=== PATIENT | female | born 1985 | race Caucasian/White ===

== ENCOUNTER 2018-01-07 08:54 | Emergency (ER) | payer OTHER ==
[2018-01-07] MEDS ORDERED: IPRATROPIUM BROM 0.5MG/2.5ML ONE (09:42)
[2018-01-07] MEDS ORDERED: HYDROCODONE/CHLORPHEN 5 ML/OSYR ONE (09:42)
[2018-01-07] MEDS ORDERED: ALBUTEROL 2.5 MG/3 ML NEB SOL ONE (09:42)
[2018-01-07] MEDS ORDERED: IBUPROFEN 400 MG TAB ONE (09:43)
--- NOTE | 2018-01-07 11:02 | ER ---
Nurse's Notes [facility] Name: Breanna Tolbert Age: 32 yrs Sex: Female : 1985 Arrival Date: 01/07/2018 Time: 08:57 Bed 20 Private MD: VEROAN TRIANA Diagnosis: Influenza due to identified novel influenza A virus with other respiratory manifestations Presentation: 01/07 09:05 Presenting complaint: Productive cough with yellow sputum, sinus congestion, and hb headache x 3 days. Chills, body aches, and nausea x 2 days. Transition of care: patient was not received from another setting of care. Onset of symptoms is unknown. Risk Assessment: Do you want to hurt yourself or someone else? Patient reports no desire to harm self or others. Initial Sepsis Screen: Does the patient meet any 2 criteria? No. Patient's initial sepsis screen is negative. Does the patient have a suspected source of infection? No. Patient's initial sepsis screen is negative. Care prior to arrival: None. 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 - Social history:: Smoking status: Patient uses tobacco products, smokes one-half pack cigarettes per day. - Ebola Screening: : No symptoms or risks identified at this time. Screenin:07 Abuse screen: Denies threats or abuse. Denies injuries from another. Nutritional hb screening: No deficits noted. Tuberculosis screening: No symptoms or risk factors identified. Fall Risk None identified. Assessment: 09:10 General: Appears uncomfortable, Behavior is calm, cooperative, Reports chills for 2-3 rb1 days, feeling ill for Denies fever. Pain: Complains of pain in generalized bodyaches Pain currently is 10 out of 10 on a pain scale. Neuro: Level of Consciousness is awake, alert, obeys commands, Oriented to person, place, time, situation. Cardiovascular: Capillary refill < 3 seconds is brisk in bilateral fingers. Respiratory: Reports cough that is productive, yellow-green sputum Airway is patent Respiratory effort is even, unlabored, Respiratory pattern is regular, symmetrical. GI: Reports nausea. : No signs and/or symptoms were reported regarding the genitourinary system. EENT: Reports nasal congestion. Derm: Skin is pink, warm \T\ dry. Musculoskeletal: Range of motion: intact in all extremities. 09:49 Reassessment: Patient appears in no apparent distress at this time. No changes from rb1 previously documented assessment. 10:31 Reassessment: Patient appears in no apparent distress at this time. Patient and/or rb1 family updated on plan of care and expected duration. Pain level reassessed. Patient is alert, oriented x 3, equal unlabored respirations, skin warm/dry/pink. at bedside. Gave the pt. some water. Tolerated well. 11:25 Reassessment: Patient appears in no apparent distress at this time. No changes from em previously documented assessment. Patient is alert, oriented x 3, equal unlabored respirations, skin warm/dry/pink. Vital Signs: 09:06 BP 115 / 70; Pulse 78; Resp 16; Temp 99.4; Pulse Ox 97% on R/A; Pain 7/10; hb 09:10 BP 115 / 70; Pulse 77; Resp 17; Temp 98.7(O); Pulse Ox 97% on R/A; Weight 83.91 kg (R); rb1 Height 5 ft. 7 in. (170.18 cm) (R); Pain 10/10; 10:09 BP 113 / 68; Pulse 71; Resp 16; Pulse Ox 99% on R/A; rb1 11:00 BP 113 / 72; Pulse 72; Resp 16; Pulse Ox 99% on R/A; rb1 09:10 Body Mass Index 28.97 (83.91 kg, 170.18 cm) [facility] ED Course: 08:57 Patient arrived in ED. sb2 08:58 VERONA TRIANA is Private Physician. sb2 09:02 [facility] Carroll [facility]. cp 09:02 Tom Christiansen MD is Attending Physician. cp 09:06 Triage completed. hb 09:06 Arm band placed on right wrist. hb 09:07 Patient has correct armband on for positive identification. Bed in low position. Call light in reach. Side rails up X 1. 09:10 Pulse ox on. NIBP on. rb1 09:11 Radha Catherine, RN is Primary Nurse. rb1 10:35 XRAY Chest Pa And Lat (2 Views) In Process Unspecified. EDMS 11:01 VERONA TRIANA is Referral Physician. cp 11:24 No provider procedures requiring assistance completed. Patient did not have IV access em during this emergency room visit. Administered Medications: 09:45 Drug: Ibuprofen 800 mg Route: PO; rb1 10:20 Follow up: Response: No adverse reaction; Pain is decreased rb1 09:45 Drug: Albuterol 2.5 mg Route: Inhalation; rb1 10:35 Follow up: Response: No adverse reaction; Marked relief of symptoms rb1 09:45 Drug: AtroVENT Aerosol 0.5 mg Route: Inhalation; rb1 10:20 Follow up: Response: No adverse reaction; Marked relief of symptoms rb1 10:08 Drug: Tussionex Pennkinetic ER 5 ml Route: PO; rb1 10:34 Follow up: Response: No adverse reaction; Marked relief of symptoms rb1 Outcome: 11:01 Discharge ordered by MD. cp 11:24 Discharged to home ambulatory, with family. em 11:24 Condition: good 11:24 Discharge instructions given to patient, family, Instructed on discharge instructions, follow up and referral plans. medication usage, Demonstrated understanding of instructions, follow-up care, medications, Prescriptions given X 2. 11:25 Patient left the ED. em Signatures: Dispatcher [employer] [facility] Rob Chery, RUBBER COMPOUNDER FORMULATOR RUBBER COMPOUNDER FORMULATOR em Tom Carroll PA PA cp Radha Catherine, RN RN rb1 Radha Nava RN RN Dominique Crowe sb2
--- NOTE | 2018-01-07 11:02 | EDPHYS ---
Physician Documentation [facility] Name: Breanna Tolbert Age: 32 yrs Sex: Female : 1985 Arrival Date: 01/07/2018 Time: 08:57 Bed 20 Private MD: VERONA TRIANA ED Physician Tom Christiansen HPI: 01/07 09:30 This 32 yrs old Female presents to ER via Ambulatory with complaints of Flu cp Symptoms. 09:30 The patient or guardian reports cough, that is intermittent, flu symptoms, low-grade cp fever, body aches, low back pain. 09:30 Onset: The symptoms/episode began/occurred 3 day(s) ago. cp 09:30 Associated signs and symptoms: Pertinent negatives: diarrhea, fever, vomiting. 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 - Social history:: Smoking status: Patient uses tobacco products, smokes one-half pack cigarettes per day. - Ebola Screening: : No symptoms or risks identified at this time. ROS: 09:35 Constitutional: Positive for body aches, Negative for fever. cp 09:35 Eyes: Negative for injury, pain, redness, and discharge. cp 09:35 ENT: Positive for sore throat. 09:35 Neck: Negative for stiffness. 09:35 Cardiovascular: Negative for chest pain, palpitations. 09:35 Respiratory: Positive for cough, Negative for shortness of breath, wheezing. 09:35 Abdomen/GI: Positive for nausea, Negative for constipation. 09:35 Back: Positive for pain at rest, pain with movement, of the low back area. 09:35 : Negative for urinary symptoms. 09:35 Skin: Negative for cellulitis, rash. 09:35 All other systems are negative. Exam: 09:45 Constitutional: The patient appears in no acute distress, alert, awake, non-toxic, well cp developed, well nourished. 09:45 Head/Face: Normocephalic, atraumatic. cp 09:45 Eyes: Periorbital structures: appear normal, Conjunctiva: normal, no exudate, no injection, Sclera: no appreciated abnormality, Lids and lashes: appear normal, bilaterally. 09:45 ENT: External ear(s): are unremarkable, Ear canal(s): are normal, clear, TM's: bulging, is not appreciated, bilaterally, dullness, bilaterally, erythema, is not appreciated, bilaterally, Nose: is normal, Mouth: is normal, Posterior pharynx: Airway: no evidence of obstruction, patent, Tonsils: no enlargement, no exudate, swelling, is not appreciated, erythema, that is mild, exudate, is not appreciated, Voice: is normal. 09:45 Neck: ROM/movement: is normal, is supple, without pain, no range of motions limitations, no meningismus, no nuchal rigidity, Lymph nodes: no appreciated lymphadenopathy. 09:45 Chest/axilla: Inspection: normal, Palpation: is normal, no crepitus, no tenderness. 09:45 Cardiovascular: Rate: normal, Rhythm: regular. 09:45 Respiratory: the patient does not display signs of respiratory distress, Respirations: normal, no use of accessory muscles, no retractions, no splinting, no tachypnea, labored breathing, is not present, Breath sounds: bronchial sounds, that are mild, are heard diffusely, decreased breath sounds, are not appreciated, stridor, is not appreciated, + upper airway congestion. wheezing: is not appreciated. 09:45 Abdomen/GI: Inspection: abdomen appears normal, Bowel sounds: active, all quadrants, Palpation: abdomen is soft and non-tender, in all quadrants, rebound tenderness, is not appreciated, voluntary guarding, is not appreciated, involuntary guarding, is not appreciated. 09:45 Back: pain, that is mild, of the low back area, CVA tenderness, is absent. 09:45 Skin: cellulitis, is not appreciated, no rash present. 09:45 Neuro: Orientation: to person, place \T\ time. Mentation: is normal, Cerebellar function: is grossly normal, Motor: moves all fours, strength is normal, Sensation: is normal. Vital Signs: 09:06 BP 115 / 70; Pulse 78; Resp 16; Temp 99.4; Pulse Ox 97% on R/A; Pain 7/10; hb 09:10 BP 115 / 70; Pulse 77; Resp 17; Temp 98.7(O); Pulse Ox 97% on R/A; Weight 83.91 kg (R); rb1 Height 5 ft. 7 in. (170.18 cm) (R); Pain 10/10; 10:09 BP 113 / 68; Pulse 71; Resp 16; Pulse Ox 99% on R/A; rb1 11:00 BP 113 / 72; Pulse 72; Resp 16; Pulse Ox 99% on R/A; rb1 09:10 Body Mass Index 28.97 (83.91 kg, 170.18 cm) rb1 MDM: 09:02 Patient medically screened. cp 09:45 Differential diagnosis: bronchitis, flu, pneumonia, strep throat. cp 10:55 Antibiotic administration: Not indicated, the patient does not have an appreciated cp infiltrate, the patient has a suspected viral illness. 10:55 Data reviewed: vital signs, nurses notes, lab test result(s), radiologic studies, plain cp films. Test interpretation: by ED physician or midlevel provider: plain radiologic studies. 10:55 Counseling: I had a detailed discussion with the patient and/or guardian regarding: the cp historical points, exam findings, and any diagnostic results supporting the discharge/admit diagnosis, lab results, radiology results, to return to the emergency department if symptoms worsen or persist or if there are any questions or concerns that arise at home. 01/07 09:24 Order name: Influenza Screen (a \T\ B); Complete Time: 10:21 cp 01/07 10:21 Interpretation: FLUA FLU A ----- \T\nbsp; \T\nbsp; \T\nbsp; \T\nbsp; \T\nbsp; \T\nbsp; \T\nbsp ; cp \T\nbsp; \T\nbsp; POSITIVE for FLU A protein antigen; Reviewed. 01/07 09:24 Order name: Strep; Complete Time: 10:21 cp 01/07 10:35 Interpretation: Reviewed. cp 01/07 09:24 Order name: XRAY Chest Pa And Lat (2 Views) cp 01/07 10:06 Order name: Throat Culture EDVA 01/07 10:23 Order name: Urine Dipstick--Ancillary (enter results) bd 01/07 10:23 Order name: Urine --Ancillary (enter results) bd 01/07 09:24 Order name: Urine Dipstick-Ancillary (obtain specimen); Complete Time: 10:09 cp 12 09:24 Order name: Urine Test (obtain specimen); Complete Time: 10:09 cp Administered Medications: 09:45 Drug: Ibuprofen 800 mg Route: PO; rb1 10:20 Follow up: Response: No adverse reaction; Pain is decreased rb1 09:45 Drug: Albuterol 2.5 mg Route: Inhalation; rb1 10:35 Follow up: Response: No adverse reaction; Marked relief of symptoms rb1 09:45 Drug: AtroVENT Aerosol 0.5 mg Route: Inhalation; rb1 10:20 Follow up: Response: No adverse reaction; Marked relief of symptoms rb1 10:08 Drug: Tussionex Pennkinetic ER 5 ml Route: PO; rb1 10:34 Follow up: Response: No adverse reaction; Marked relief of symptoms rb1 Disposition: 01/08 07:17 Co-signature as Attending Physician, Tom Christiansen MD I agree with the assessment and jovani plan of care. Disposition: 01/07/18 11:01 Discharged to Home. Impression: Influenza due to identified novel influenza A virus with other respiratory manifestations. - Condition is Stable. - Discharge Instructions: Influenza, Adult. - Prescriptions for Ibuprofen 800 mg Oral Tablet - take 1 tablet by ORAL route every 8 hours As needed take with food; 30 tablet. Guaifenesin AC 10- 100 mg/5 mL Oral Liquid - take 10 milliliters by ORAL route every 6 hours As needed; 180 milliliter. - Work release form, Medication Reconciliation Form, Thank You Letter, Antibiotic Education, Prescription Opioid Use form. - Follow up: VERONA TRIANA; When: 2 - 3 days; Reason: Recheck today's complaints. - Problem is new. - Symptoms have improved. Signatures: Dispatcher [employer] Tom Valdez MD MD cha Munoz, Edgar, COURTROOM CLERK COURTROOM CLERK em Tom Carroll PA PA cp Barber, Rebecca, RN RN rb1 Radha Nava RN RN Corrections: (The following items were deleted from the chart) 01/07 11:25 11:01 01/07/2018 11:01 Discharged to Home. Impression: Influenza due to identified em novel influenza A virus with other respiratory manifestations. Condition is Stable. Forms are Medication Reconciliation Form, Thank You Letter, Antibiotic Education, Prescription Opioid Use. Follow up: VERONA TRIANA; When: 2 - 3 days; Reason: Recheck today's complaints. Problem is new. Symptoms have improved. cp
[2018-01-07 11:30] VITALS: BP 115/70; O2SAT 97
--- NOTE | 2018-01-07 11:32 | RAD REPORT ---
EXAM DESCRIPTION: RAD - Chest Pa And Lat (2 Views) - 01/07/2018 10:37 am CLINICAL HISTORY: Cough, congestion, body aches COMPARISON: July 2008 TECHNIQUE: PA and lateral views of the chest were obtained. FINDINGS: The lungs are clear of focal consolidation, mass or failure finding. Interstitial markings are not substantially different from comparison. This interstitial pattern could potentially mask ea rliest stages of interstitial edema or infiltrate. Heart size is normal and central vasculature is within normal limits. No pleural effusion or pneumothorax seen. No acute bony finding noted. No ao rtic abnormality. IMPRESSION: Chronic interstitial pattern not substantially different from comparison. This could mas k early interstitial edema or infiltrate. No focal consolidation.
[2018-01-07 12:15] LABS: Urine Blood NEGATIVE (NEG); Urine Glucose NEGATIVE (NEG); Urine Protein NEGATIVE (NEG)
[2018-01-07 16:23] VITALS: TEMP 98.7
== END 2018-01-07 11:25 | disposition home or self-care (01) ==
LOC: ER 08:54
DX: J10.1 Influenza due to other identified influenza virus with other respiratory manifestations (principal); F17.210 Nicotine dependence, cigarettes, uncomplicated
CPT/HCPCS: 71046; 81003; 81025; 87070; 87081; 87804; 99284

== ENCOUNTER 2018-05-11 11:49 | Emergency (ER) | payer OTHER ==
[2018-05-11] MEDS ORDERED: FENTANYL CITR 100 MCG/2 ML ONE ×2 (12:14→13:21)
[2018-05-11] MEDS ORDERED: NA CHLORIDE 0.9% 1,000 ML ONE (12:16)
[2018-05-11] MEDS ORDERED: ONDANSETRON 4 MG/2 ML VIAL ONE (12:16)
[2018-05-11 12:36] LABS: Potassium 4.1 mmol/L (3.5-5.1)
[2018-05-11 12:43] LABS: Absolute Lymphocytes (CBC) 2.7 K/uL (0.7-4.9); Absolute Monocytes 0.8 K/uL (0.1-1.3); Absolute Neutrophil 3.8 K/uL (1.8-8.0); Eosinophils % 2.5 % (0-4.4); Hematocrit 40.3 % (36.0-45.0); Lymphocytes % 35.5 % (15.3-44.8); MPV 9.8 fL (7.6-11.3); Monocytes % 10.9 % (3.3-12.3); RBC Red Blood Cell Count 4.45 M/uL (3.86-4.86)
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
[2018-05-11 13:58] VITALS: BP 120/77; TEMP 98.2; O2SAT 100
== END 2018-05-11 13:53 | disposition home or self-care (01) ==
LOC: ER 11:49
DX: T21.12XA Burn of first degree of abdominal wall, initial encounter (principal); T24.112A Burn of first degree of left thigh, initial encounter; T24.111A Burn of first degree of right thigh, initial encounter; T31.0 Burns involving less than 10% of body surface; X11.8XXA Contact with other hot tap-water, initial encounter; Y93.G3 Activity, cooking and baking; Y92.009 Unspecified place in unspecified non-institutional (private) residence as the place of occurrence of the external cause
CPT/HCPCS: 36415; 80048; 85025; 96374; 96375; 99283; J2405; J3010; J7030

== ENCOUNTER 2018-09-02 09:23 | Emergency (ER) | payer OTHER ==
--- NOTE | 2018-09-02 10:07 | ER ---
Nurse's Notes [facility] Name: Breanna Tolbert Age: 33 yrs Sex: Female : 1985 Arrival Date: 09/02/2018 Time: 09:25 Bed 19 Private MD: Diagnosis: Urticaria, unspecified Presentation: 09/02 09:31 Presenting complaint: Patient states: Rash on face that patient noticed when she woke ss up this AM. Denies SOB, itching and/or pain. Transition of care: patient was not received from another setting of care. Onset of symptoms was September 02, 2018. Risk Assessment: Do you want to hurt yourself or someone else? Patient reports no desire to harm self or others. Initial Sepsis Screen: Does the patient meet any 2 criteria? No. Patient's initial sepsis screen is negative. Does the patient have a suspected source of infection? No. Patient's initial sepsis screen is negative. Care prior to arrival: None. 09:31 Method Of Arrival: Ambulatory ss 09:31 Acuity: MISHEL 5 ss Historical: - Allergies: 09:34 Aspirin; ss - Home Meds: 09:34 None [Active]; ss - PMHx: 09:34 None; ss - PSHx: 09:34 None; ss - Immunization history:: Adult Immunizations up to date. - Social history:: Smoking status: Patient uses tobacco products, smokes one pack cigarettes per day. - Ebola Screening: : Patient denies exposure to infectious person Patient denies travel to an Ebola-affected area in the 21 days before illness onset. Screenin:36 Abuse screen: Denies threats or abuse. Denies injuries from another. Nutritional ss screening: No deficits noted. Tuberculosis screening: No symptoms or risk factors identified. Never had TB. Fall Risk None identified. Assessment: 09:36 General: Appears in no apparent distress. comfortable, Behavior is calm, cooperative, ss Denies fever, feeling ill, fatigue, chills. Pain: Denies pain. Neuro: Level of Consciousness is awake, alert, obeys commands, Oriented to person, place, time, situation. Cardiovascular: Heart tones S1 S2 present Capillary refill < 3 seconds is brisk in bilateral fingers Patient's skin is warm and dry. Chest pain is denied. Respiratory: Airway is patent Respiratory effort is even, unlabored, Respiratory pattern is regular, symmetrical, Breath sounds are clear bilaterally. GI: Abdomen is non-distended. : No signs and/or symptoms were reported regarding the genitourinary system. EENT: Oral mucosa is moist. Throat is clear. Derm: Skin is pink, warm \T\ dry. normal, Rash noted that is papular, on face. Musculoskeletal: Circulation, motion, and sensation intact. Range of motion: intact in all extremities, Swelling absent. Vital Signs: 09:34 BP 114 / 64; Pulse 67; Resp 16; Temp 98.1(O); Pulse Ox 99% on R/A; Weight 83.46 kg; ss Height 5 ft. 7 in. (170.18 cm); Pain 0/10; 09:34 Body Mass Index 28.82 (83.46 kg, 170.18 cm) ED Course: 09:25 Patient arrived in ED. as 09:28 Tom Carroll PA is PHCP. cp 09:28 Tom Christiansen MD is Attending Physician. cp 09:29 Rob Chery LVN is Primary Nurse. em 09:33 Triage completed. ss 09:34 Arm band placed on right wrist. ss 09:36 Patient has correct armband on for positive identification. Bed in low position. Call ss light in reach. Side rails up X 1. 09:52 Urine collected: clean catch specimen, clear. em 10:14 No provider procedures requiring assistance completed. Patient did not have IV access em during this emergency room visit. Administered Medications: No medications were administered Outcome: 10:06 Discharge ordered by MD. cp 10:14 Discharged to home ambulatory, with family. em 10:14 Condition: good 10:14 Discharge instructions given to patient, family, Instructed on discharge instructions, follow up and referral plans. medication usage, Demonstrated understanding of instructions, follow-up care, medications, Prescriptions given X 2. 10:14 Patient left the ED. em Signatures: Rob Chery LVN LVN em Kell Narvaez Shelby, KARLA RN Tom Carroll PA PA cp
--- NOTE | 2018-09-02 10:07 | EDPHYS ---
Physician Documentation [facility] Name: Breanna Tolbert Age: 33 yrs Sex: Female : 1985 Arrival Date: 09/02/2018 Time: 09:25 Bed 19 Private MD: ED Physician Tom Christiansen HPI: 09/02 09:43 This 33 yrs old Female presents to ER via Ambulatory with complaints of cp Facial Problem. 09:43 The patient's rash thought to be caused by an unknown cause. The rash is located on the cp face. 09:43 The rash can be described as erythematous. Onset: The symptoms/episode began/occurred cp noticed this morning. Associated signs and symptoms: Pertinent negatives: burning sensation, difficulty breathing, fever, itching, swelling of lips, swelling of throat, swelling of tongue, vomiting, wheezing. Severity of symptoms: in the emergency department the symptoms are unchanged. Historical: - Allergies: 09:34 Aspirin; ss - Home Meds: 09:34 None [Active]; ss - PMHx: 09:34 None; ss - PSHx: 09:34 None; ss - Immunization history:: Adult Immunizations up to date. - Social history:: Smoking status: Patient uses tobacco products, smokes one pack cigarettes per day. - Ebola Screening: : Patient denies exposure to infectious person Patient denies travel to an Ebola-affected area in the 21 days before illness onset. ROS: 09:45 Constitutional: Negative for body aches, chills, fever, poor PO intake. cp 09:45 Eyes: Negative for discharge, pain, redness. cp 09:45 ENT: Negative for drainage from ear(s), ear pain, sore throat, difficulty swallowing, difficulty handling secretions. 09:45 Respiratory: Negative for cough, shortness of breath, wheezing. 09:45 Skin: Positive for rash, of the face. 09:45 All other systems are negative. Exam: 09:50 Constitutional: The patient appears in no acute distress, alert, awake, non-toxic, well cp developed, well nourished. 09:50 Head/face: Noted is rash, consistent with urticaria cp 09:50 ENT: Ear canal(s): are normal, clear, TM's: dullness, bilaterally, Nose: is normal, Mouth: Lips: moist, Oral mucosa: pink and intact, moist, Posterior pharynx: is normal, airway is patent, no erythema, no exudate. 09:50 Chest/axilla: Inspection: normal. 09:50 Cardiovascular: Rate: normal. 09:50 Respiratory: the patient does not display signs of respiratory distress, Respirations: normal, no use of accessory muscles, no retractions, no splinting, no tachypnea, Breath sounds: are clear throughout. Vital Signs: 09:34 BP 114 / 64; Pulse 67; Resp 16; Temp 98.1(O); Pulse Ox 99% on R/A; Weight 83.46 kg; ss Height 5 ft. 7 in. (170.18 cm); Pain 0/10; 09:34 Body Mass Index 28.82 (83.46 kg, 170.18 cm) ss MDM: 09:29 Patient medically screened. [facility] 10:06 Data reviewed: vital signs, nurses notes, and as a result, I will discharge patient. 09/02 09:52 Order name: Urine Dipstick--Ancillary (enter results) 09/02 09:52 Order name: Urine --Ancillary (enter results) 09/02 09:50 Order name: Urine Dipstick-Ancillary (obtain specimen); Complete Time: 09:52 em 09/02 09:50 Order name: Urine Test (obtain specimen); Complete Time: 09:52 em Administered Medications: No medications were administered Disposition: 10:20 Chart complete. cp 11:15 Co-signature as Attending Physician, Tom Christiansen MD I agree with the assessment and [facility] plan of care. Disposition: 09/02/18 10:06 Discharged to Home. Impression: Urticaria, unspecified. - Condition is Stable. - Discharge Instructions: Allergies, Adult. - Prescriptions for Pepcid 20 mg Oral Tablet - take 1 tablet by ORAL route every 12 hours for 5 days; 10 tablet. Prednisone 20 mg Oral Tablet - take 2 tablet by ORAL route once daily for 5 days; 10 tablet. - Medication Reconciliation Form, Thank You Letter, Antibiotic Education, Prescription Opioid Use form. - Follow up: Private Physician; When: 2 - 3 days; Reason: Worsening of condition. - Problem is new. - Symptoms are unchanged. Signatures: Dispatcher [employer] Tom Valdez MD MD cha Munoz, Edgar, CONSTRUCTION CARPENTERS HELPER CONSTRUCTION CARPENTERS HELPER em Italia Makc RN RN ss Tom Carroll PA PA cp Corrections: (The following items were deleted from the chart) 10:14 10:06 09/02/2018 10:06 Discharged to Home. Impression: Urticaria, unspecified. em Condition is Stable. Forms are Medication Reconciliation Form, Thank You Letter, Antibiotic Education, Prescription Opioid Use. Follow up: Private Physician; When: 2 - 3 days; Reason: Worsening of condition. Problem is new. Symptoms are unchanged. cp
[2018-09-02 10:21] VITALS: BP 114/64; TEMP 98.1; O2SAT 99
[2018-09-02 10:50] LABS: Urine Blood NEGATIVE (NEG); Urine Glucose NEGATIVE (NEG); Urine Protein NEGATIVE (NEG)
== END 2018-09-02 10:14 | disposition home or self-care (01) ==
LOC: ER 09:23
DX: L50.9 Urticaria, unspecified (principal); F17.210 Nicotine dependence, cigarettes, uncomplicated; Z88.6 Allergy status to analgesic agent
CPT/HCPCS: 81003; 81025; 99283

== ENCOUNTER 2018-09-20 15:58 | Emergency (ER) | payer OTHER ==
--- NOTE | 2018-09-20 16:17 | EDPHYS ---
Physician Documentation [facility] Name: Breanna Tolbert Age: 33 yrs Sex: Female : 1985 Arrival Date: 09/20/2018 Time: 16:01 Bed 9 Private MD: ED Physician Tom Christiansen HPI: 09/20 16:12 This 33 yrs old Female presents to ER via Ambulatory with complaints of Sore jmm Throat. 16:12 The patient presents with sore throat. Onset: The symptoms/episode began/occurred 2 jmm day(s) ago. Modifying factors: The symptoms are alleviated by over the counter medications, the symptoms are aggravated by swallowing, Patient's oral intake status: good. Associated signs and symptoms: Pertinent positives: fever, Pertinent negatives chest pain, chills, cough. This is a 33 year old female with no chronic medical conditions that presents to the ED with complaints of sore throat. Denies cough. States symptoms are similar to previous strep infections. Has taken salt water gargles for relief. . 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 - Social history:: Smoking status: Patient uses tobacco products, smokes one-half pack cigarettes per day. - Ebola Screening: : No symptoms or risks identified at this time. ROS: 16:12 Abdomen/GI: Negative for abdominal pain, nausea, vomiting, diarrhea, and constipation, jmm Back: Negative for injury and pain, Neuro: Negative for headache, weakness, numbness, tingling, and seizure. 16:12 Constitutional: Positive for body aches, chills, fever. 16:12 ENT: Positive for sore throat. 16:12 All other systems are negative. Exam: 16:12 Constitutional: This is a well developed, well nourished patient who is awake, alert, jmm and in no acute distress. Head/Face: atraumatic. Eyes: EOMI, no conjunctival erythema appreciated 16:12 Chest/axilla: Normal chest wall appearance and motion. Cardiovascular: Regular rate and rhythm. No edema appreciated Respiratory: Normal respirations, no respiratory distress appreciated Abdomen/GI: Non distended, soft Back: Normal ROM Skin: General appearance color normal MS/ Extremity: Moves all extremities, no obvious deformities appreciated, no edema noted to the lower extremities Neuro: Awake and alert, normal gait Psych: Behavior is normal, Mood is normal, Patient is cooperative and pleasant 16:12 ENT: Posterior pharynx: Tonsils: bilaterally enlarged, with erythema, with exudate, Uvula: midline, erythema, that is moderate, peritonsillar mass, is not appreciated. Vital Signs: 16:04 BP 119 / 58; Pulse 82; Resp 16; Temp 98.6; Pulse Ox 98% on R/A; Weight 83.46 kg; Height la1 5 ft. 7 in. (170.18 cm); 16:04 Body Mass Index 28.82 (83.46 kg, 170.18 cm) la1 MDM: 16:07 Patient medically screened. [facility] 16:15 Data reviewed: vital signs, nurses notes. Counseling: I had a detailed discussion with katja the patient and/or guardian regarding: the historical points, exam findings, and any diagnostic results supporting the discharge/admit diagnosis, lab results, the need for outpatient follow up, to return to the emergency department if symptoms worsen or persist or if there are any questions or concerns that arise at home. ED course: Patient is alert and non toxic in appearance. 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 Patient is advised to return to the ED if symptoms worsen. patient understood and agrees with the plan of care. . 09/20 16:03 Order name: Strep la1 Administered Medications: No medications were administered Disposition: 09/21 08:27 Co-signature as Attending Physician, Tom Christiansen MD I agree with the assessment and [facility] plan of care. Disposition: 09/20/18 16:16 Discharged to Home. Impression: Acute tonsillitis. - Condition is Stable. - Discharge Instructions: Tonsillitis. - Prescriptions for Amoxicillin 875 mg Oral Tablet - take 1 tablet by ORAL route every 12 hours for 10 days; 20 tablet. - Medication Reconciliation Form, Thank You Letter, Antibiotic Education, Prescription Opioid Use, Work release form form. - Follow up: Private Physician; When: 2 - 3 days; Reason: Recheck today's complaints, Continuance of care, Re-evaluation by your physician. Signatures: Dispatcher [employer] Tom Valdez MD MD cha Mickail, Joel, PA PA jmm Attema, Lee RN RN la1 Corrections: (The following items were deleted from the chart) 09/20 16:22 16:16 09/20/2018 16:16 Discharged to Home. Impression: Acute tonsillitis. Condition is la1 Stable. Forms are Medication Reconciliation Form, Thank You Letter, Antibiotic Education, Prescription Opioid Use. Follow up: Private Physician; When: 2 - 3 days; Reason: Recheck today's complaints, Continuance of care, Re-evaluation by your physician. katja
--- NOTE | 2018-09-20 16:17 | ER ---
Nurse's Notes [facility] Name: Breanna Tolbert Age: 33 yrs Sex: Female : 1985 Arrival Date: 09/20/2018 Time: 16:01 Bed 9 Private MD: Diagnosis: Acute tonsillitis Presentation: 09/20 16:03 Presenting complaint: Patient states: Sore throat since yesterday. Transition of care: la1 patient was not received from another setting of care. Onset of symptoms was September 20, 2018. Risk Assessment: Do you want to hurt yourself or someone else? Patient reports no desire to harm self or others. Initial Sepsis Screen: Does the patient meet any 2 criteria? No. Patient's initial sepsis screen is negative. Does the patient have a suspected source of infection? No. Patient's initial sepsis screen is negative. Care prior to arrival: None. 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 - Social history:: Smoking status: Patient uses tobacco products, smokes one-half pack cigarettes per day. - Ebola Screening: : No symptoms or risks identified at this time. Screenin:06 Abuse screen: Denies threats or abuse. Nutritional screening: No deficits noted. la1 Tuberculosis screening: No symptoms or risk factors identified. Fall Risk None identified. Assessment: 16:05 General: Appears in no apparent distress. Behavior is calm, cooperative. Pain: la1 Complains of pain in left aspect of posterior pharynx and right aspect of posterior pharynx. Neuro: Level of Consciousness is awake, alert, obeys commands, Oriented to person, place, time, situation. Cardiovascular: Capillary refill < 3 seconds Patient's skin is warm and dry. Respiratory: Airway is patent Respiratory effort is even, unlabored, Respiratory pattern is regular, symmetrical, Breath sounds are clear bilaterally. GI: No signs and/or symptoms were reported involving the gastrointestinal system. : No signs and/or symptoms were reported regarding the genitourinary system. EENT: Throat has patchy exudate has enlarged tonsils bilaterally. Vital Signs: 16:04 BP 119 / 58; Pulse 82; Resp 16; Temp 98.6; Pulse Ox 98% on R/A; Weight 83.46 kg; Height la1 5 ft. 7 in. (170.18 cm); 16:04 Body Mass Index 28.82 (83.46 kg, 170.18 cm) la1 ED Course: 16:01 Patient arrived in ED. as 16:01 Nathan Harris PA is PHCP. [facility] 16:01 Tom Christiansen MD is Attending Physician. [facility] 16:03 Triage completed. la1 16:04 Arm band placed on right wrist. la1 16:06 Patient has correct armband on for positive identification. la1 16:08 Samara Loza, RN is Primary Nurse. aa5 16:22 No provider procedures requiring assistance completed. Patient did not have IV access la1 during this emergency room visit. Administered Medications: No medications were administered Outcome: 16:16 Discharge ordered by MD. [facility] 16:22 Discharged to home ambulatory. la1 16:22 Condition: stable 16:22 Discharge instructions given to patient, Instructed on discharge instructions, follow up and referral plans. medication usage, Demonstrated understanding of instructions, follow-up care, medications, Prescriptions given X 1. 16:22 Patient left the ED. la1 Signatures: Nathan Harris PA PA jmm Martinez, Amelia as Calderon, Audri, RN RN 5 Lopez Cruz RN RN la1
[2018-09-20 16:33] VITALS: BP 119/58; TEMP 98.6; O2SAT 98
== END 2018-09-20 16:22 | disposition home or self-care (01) ==
LOC: ER 15:58
DX: J03.90 Acute tonsillitis, unspecified (principal); F17.210 Nicotine dependence, cigarettes, uncomplicated; Z88.6 Allergy status to analgesic agent
CPT/HCPCS: 87070; 87081; 99282

== ENCOUNTER 2018-12-23 20:03 | Emergency (ER) | payer OTHER, SELFPAY ==
--- NOTE | 2018-12-23 20:44 | EDPHYS ---
Physician Documentation [facility] Name: Breanna Tolbert Age: 33 yrs Sex: Female : 1985 Arrival Date: 12/23/2018 Time: 20:05 Bed 26 Private MD: ED Physician Donato Kwong HPI: 12/23 20:58 This 33 yrs old Female presents to ER via Ambulatory with complaints of snw Congestion. 20:58 Onset: The symptoms/episode began/occurred 3 week(s) ago, and became worse and became snw persistent. Associated signs and symptoms: Pertinent positives: congestion, earache, nasal discharge, sore throat, decreased hearing. Modifying factors: The patient symptoms are alleviated by nothing. It is unknown whether or not the patient has had similar symptoms in the past. The patient has not recently seen a physician. + smoker. 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 - Social history:: Smoking status: Patient uses tobacco products, smokes one pack cigarettes per day. - Ebola Screening: : Patient denies travel to an Ebola-affected area in the 21 days before illness onset. ROS: 20:57 Eyes: Negative for injury, pain, redness, and discharge. snw 20:57 Neck: Negative for injury, pain, and swelling. 20:57 Abdomen/GI: Negative for abdominal pain, nausea, vomiting, diarrhea, and constipation, Back: Negative for injury and pain, : Negative for injury, bleeding, discharge, and swelling, MS/Extremity: Negative for injury and deformity, Skin: Negative for injury, rash, and discoloration, Neuro: Negative for headache, weakness, numbness, tingling, and seizure. 20:57 Constitutional: Positive for body aches, fatigue, malaise. 20:57 ENT: Positive for ear pain, nasal discharge, rhinorrhea, sinus congestion, sore throat. 20:57 Respiratory: Positive for cough. Exam: 20:56 Eyes: Pupils equal round and reactive to light, extra-ocular motions intact. Lids and snw lashes normal. Conjunctiva and sclera are non-icteric and not injected. Cornea within normal limits. Periorbital areas with no swelling, redness, or edema. 20:56 Neck: Trachea midline, no thyromegaly or masses palpated, and no cervical lymphadenopathy. Supple, full range of motion without nuchal rigidity, or vertebral point tenderness. No Meningismus. Chest/axilla: Normal chest wall appearance and motion. Nontender with no deformity. No lesions are appreciated. Cardiovascular: Regular rate and rhythm with a normal S1 and S2. No gallops, murmurs, or rubs. Normal PMI, no JVD. No pulse deficits. 20:56 Abdomen/GI: Soft, non-tender, with normal bowel sounds. No distension or tympany. No guarding or rebound. No evidence of tenderness throughout. Back: No spinal tenderness. No costovertebral tenderness. Full range of motion. Skin: Warm, dry with normal turgor. Normal color with no rashes, no lesions, and no evidence of cellulitis. MS/ Extremity: Pulses equal, no cyanosis. Neurovascular intact. Full, normal range of motion. Neuro: Awake and alert, GCS 15, oriented to person, place, time, and situation. Cranial nerves II-XII grossly intact. Motor strength 5/5 in all extremities. Sensory grossly intact. Cerebellar exam normal. Normal gait. Psych: Awake, alert, with orientation to person, place and time. Behavior, mood, and affect are within normal limits. 20:56 Constitutional: The patient appears uncomfortable. 20:56 Head/face: Noted is swelling, tenderness, Sinus tenderness, that is moderate. 20:56 ENT: TM's: erythema, that is moderate, bilaterally, fluid levels, Nose: Nasal mucosa: edematous, Mouth: is normal, Posterior pharynx: erythema, that is moderate, Voice: is normal. 20:56 Respiratory: the patient does not display signs of respiratory distress, Respirations: shallow respirations, Breath sounds: + upper airway congestion. Vital Signs: 20:16 BP 117 / 71; Pulse 66; Resp 16; Temp 97.7; Pulse Ox 100% on R/A; Weight 72.12 kg; aj1 Height 5 ft. 7 in. (170.18 cm); 20:16 Body Mass Index 24.90 (72.12 kg, 170.18 cm) aj1 MDM: 20:18 Patient medically screened. snw 20:48 Data reviewed: vital signs, nurses notes. Data interpreted: Pulse oximetry: on room air snw is 100 %. Interpretation: normal. Counseling: I had a detailed discussion with the patient and/or guardian regarding: the historical points, exam findings, and any diagnostic results supporting the discharge/admit diagnosis, the need for outpatient follow up, for definitive care, to return to the emergency department if symptoms worsen or persist or if there are any questions or concerns that arise at home, smoking cessation. Special discussion: Based on the history and exam findings, there is no indication for further emergent testing or inpatient evaluation. I discussed with the patient/guardian the need to see the primary care provider for further evaluation of the symptoms. Administered Medications: 20:57 Drug: Decadron 8 mg Route: PO; tr5 20:57 Drug: Albuterol 2.5 mg Route: Inhalation; tr5 20:58 Drug: Rocephin (cefTRIAXone) 1 grams Route: IM; Site: left ventrogluteal; tr5 Disposition: 12/24 00:40 Co-signature as Attending Physician, Donato Kwong MD. rn Disposition: 12/23/18 20:43 Discharged to Home. Impression: Acute bronchitis, Acute sinusitis, Acute suppurative otitis media. - Condition is Stable. - Discharge Instructions: Acute Bronchitis, Adult, Otitis Media, Adult, Sinusitis, Adult, Steps to Quit Smoking, Cough, Adult, Rehydration, Adult, Heat Therapy. - Prescriptions for Augmentin 875- 125 mg Oral Tablet - take 1 tablet by ORAL route every 12 hours for 10 days; 20 tablet. Tessalon Perles 100 mg Oral Capsule - take 1 capsule by ORAL route every 8 hours As needed; 15 capsule. Prednisone 20 mg Oral Tablet - take 2 tablet by ORAL route once daily for 5 days; 10 tablet. Albuterol Sulfate 90 mcg/actuation - inhale 1-2 puff by INHALATION route every 4-6 hours; 1 Inhaler. - Work release form, Medication Reconciliation Form, Thank You Letter, Antibiotic Education, Prescription Opioid Use form. - Follow up: Emergency Department; When: As needed; Reason: Worsening of condition. Follow up: Private Physician; When: 2 - 3 days; Reason: Recheck today's complaints, Continuance of care, Re-evaluation by your physician. Signatures: Yoly Mccartney RN RN aj1 Zoraida Myers, WOOD BORING MACHINE OPERATOR-C WOOD BORING MACHINE OPERATOR-Csnw Donato Kwong MD MD rn Rodriguez, Tommie, RN RN tr5 Corrections: (The following items were deleted from the chart) 12/23 21:31 20:43 12/23/2018 20:43 Discharged to Home. Impression: Acute bronchitis; Acute tr5 sinusitis; Acute suppurative otitis media. Condition is Stable. Forms are Medication Reconciliation Form, Thank You Letter, Antibiotic Education, Prescription Opioid Use. Follow up: Emergency Department; When: As needed; Reason: Worsening of condition. Follow up: Private Physician; When: 2 - 3 days; Reason: Recheck today's complaints, Continuance of care, Re-evaluation by your physician. snw
--- NOTE | 2018-12-23 20:44 | ER ---
Nurse's Notes [facility] Name: Breanna Tolbert Age: 33 yrs Sex: Female : 1985 Arrival Date: 12/23/2018 Time: 20:05 Bed 26 Private MD: Diagnosis: Acute bronchitis;Acute sinusitis;Acute suppurative otitis media Presentation: 12/23 20:14 Presenting complaint: Patient states: "I've been sick for 3 weeks and its gotten to the aj1 point where I can't hear" Patient reports difficulty hearing, sore throat, and nasal congestion for the past 3 weeks. Patient has not seen her PHCP regarding this complaint. Transition of care: patient was not received from another setting of care. Onset of symptoms was 2018. Risk Assessment: Do you want to hurt yourself or someone else? Patient reports no desire to harm self or others. Initial Sepsis Screen: Does the patient meet any 2 criteria? No. Patient's initial sepsis screen is negative. Does the patient have a suspected source of infection? No. Patient's initial sepsis screen is negative. Care prior to arrival: None. 20:14 Method Of Arrival: Ambulatory aj 20:14 Acuity: MISHEL 4 aj1 Triage Assessment: 20:16 General: Appears in no apparent distress. comfortable, Behavior is calm, cooperative, aj1 appropriate for age. Pain: Pain currently is 3 out of 10 on a pain scale. Neuro: Level of Consciousness is awake, alert, obeys commands. Cardiovascular: Patient's skin is warm and dry. Respiratory: Airway is patent Respiratory effort is even, unlabored, Respiratory pattern is regular, symmetrical. 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 - Social history:: Smoking status: Patient uses tobacco products, smokes one pack cigarettes per day. - Ebola Screening: : Patient denies travel to an Ebola-affected area in the 21 days before illness onset. Screenin:30 Abuse screen: Denies threats or abuse. Nutritional screening: No deficits noted. tr5 Tuberculosis screening: No symptoms or risk factors identified. Fall Risk None identified. Assessment: 20:30 General: Appears uncomfortable, Behavior is calm, cooperative, appropriate for age. tr5 Pain: Denies pain. 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 Cardiovascular: Heart tones present Capillary refill < 3 seconds. Respiratory: Breath sounds are clear. GI: No signs and/or symptoms were reported involving the gastrointestinal system. : No signs and/or symptoms were reported regarding the genitourinary system. EENT: Reports nasal congestion pain in left ear and mouth Hearing loss. Derm: No signs and/or symptoms reported regarding the dermatologic system. Musculoskeletal: No signs and/or symptoms reported regarding the musculoskeletal system. Vital Signs: 20:16 BP 117 / 71; Pulse 66; Resp 16; Temp 97.7; Pulse Ox 100% on R/A; Weight 72.12 kg; aj1 Height 5 ft. 7 in. (170.18 cm); 20:16 Body Mass Index 24.90 (72.12 kg, 170.18 cm) aj1 ED Course: 20:05 Patient arrived in ED. ds1 20:15 Triage completed. aj1 20:16 Arm band placed on Patient placed in an exam room. aj1 20:18 Zoraida Myers FNP-C is PHCP. snw 20:18 Donato Kwong MD is Attending Physician. snw 20:30 Placed in gown. Bed in low position. Call light in reach. tr5 20:45 Elia Garcia, RN is Primary Nurse. tr5 21:10 No provider procedures requiring assistance completed. Patient did not have IV access tr5 during this emergency room visit. Administered Medications: 20:57 Drug: Decadron 8 mg Route: PO; tr5 20:57 Drug: Albuterol 2.5 mg Route: Inhalation; tr5 20:58 Drug: Rocephin (cefTRIAXone) 1 grams Route: IM; Site: left ventrogluteal; tr5 Outcome: 20:43 Discharge ordered by . snw 21:10 Discharged to home ambulatory. tr5 21:10 Condition: stable 21:10 Discharge instructions given to patient, Instructed on discharge instructions, follow up and referral plans. medication usage, Demonstrated understanding of instructions, follow-up care, medications, Prescriptions given X 2. 21:31 Patient left the ED. tr5 Signatures: Yoly Mccartney RN RN aj1 Zoraida Myers, AUTO WHEEL ALIGNMENT SPECIALIST-C AUTO WHEEL ALIGNMENT SPECIALIST-Shelia Siddiqi ds1 Elia Garcia RN RN tr5
[2018-12-23] MEDS ORDERED: ALBUTEROL 2.5 MG/3 ML NEB SOL ONE (20:49)
[2018-12-23] MEDS ORDERED: CEFTRIAXONE/SWI 1gm 1 GM/10 ML SYR ONE (20:50)
[2018-12-23] MEDS ORDERED: dexAMETHasone 4 MG TAB ONE (20:50)
[2018-12-23 22:30] VITALS: BP 117/71; TEMP 97.7; O2SAT 100
== END 2018-12-23 21:31 | disposition home or self-care (01) ==
LOC: ER 20:03
DX: J20.9 Acute bronchitis, unspecified (principal); J01.90 Acute sinusitis, unspecified; H66.003 Acute suppurative otitis media without spontaneous rupture of ear drum, bilateral; F17.210 Nicotine dependence, cigarettes, uncomplicated
CPT/HCPCS: 96372; 99284; J0696; J8540

== ENCOUNTER 2019-03-19 11:09 | Emergency (ER) | payer SELFPAY ==
--- NOTE | 2019-03-19 14:34 | ER ---
Nurse's Notes [facility] Name: Breanna Tolbert Age: 33 yrs Sex: Female : 1985 Arrival Date: 03/19/2019 Time: 11:11 Bed 23 Private MD: VERONA TRIANA Diagnosis: Pain in right upper arm;Fall;right knee contusion Presentation: 03/19 11:29 Presenting complaint: Patient states: Fell on Monday from pushing some cups at work, jl7 fell on right side; c/o right arm, right leg, back and neck pain. Took 800 mg ibuprofen this morning and it's not helping. Transition of care: patient was not received from another setting of care. Onset of symptoms was March 17, 2019. Risk Assessment: Do you want to hurt yourself or someone else? Patient reports no desire to harm self or others. Initial Sepsis Screen: Does the patient meet any 2 criteria? No. Patient's initial sepsis screen is negative. Does the patient have a suspected source of infection? No. Patient's initial sepsis screen is negative. Care prior to arrival: Medication(s) given: Motrin, 800 mg. 11:29 Method Of Arrival: Ambulatory jl7 11:29 Acuity: MISHEL 4 jl7 Triage Assessment: 11:31 General: Appears in no apparent distress. uncomfortable, Behavior is calm, cooperative, jl7 appropriate for age. Pain: Complains of pain in back, right arm and right leg, neck. 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 - Coronavirus screen:: The patient has NOT traveled to [place], [place], or [place] in the past 14 days. Proceed with normal triage process as indicated. - Social history:: Smoking status: Patient reports the use of cigarette tobacco products, smokes one-half pack cigarettes per day. - Ebola Screening: : No symptoms or risks identified at this time. Screenin:46 Abuse screen: Denies threats or abuse. Denies injuries from another. Nutritional mg2 screening: No deficits noted. Tuberculosis screening: No symptoms or risk factors identified. Fall Risk Assessment: 12:30 General: Appears in no apparent distress. comfortable, Behavior is calm, cooperative. mg2 12:30 Pain: Complains of pain in right side. Neuro: Level of Consciousness is awake, alert, mg2 obeys commands, Oriented to person, place, time, situation. EENT: No signs and/or symptoms were reported regarding the EENT system. Cardiovascular: Capillary refill < 3 seconds Patient's skin is warm and dry. Respiratory: Airway is patent Respiratory effort is even, unlabored, Respiratory pattern is regular, symmetrical. GI: No signs and/or symptoms were reported involving the gastrointestinal system. : No signs and/or symptoms were reported regarding the genitourinary system. Derm: Skin is intact, is healthy with good turgor, Skin is pink, warm \T\ dry. normal. Musculoskeletal: Circulation, motion, and sensation intact. Capillary refill < 3 seconds. Vital Signs: 11:31 BP 111 / 62; Pulse 77; Resp 17; Temp 98.5; Pulse Ox 99% ; Weight 81.65 kg; Height 5 ft. jl7 7 in. (170.18 cm); Pain 7/10; 13:30 BP 118 / 68; Pulse 67; Resp 18; Pulse Ox 100% on R/A; mg2 14:46 BP 113 / 69; Pulse 70; Resp 18; Temp 98; Pulse Ox 100% on R/A; mg2 11:31 Body Mass Index 28.19 (81.65 kg, 170.18 cm) jl7 ED Course: 11:11 Patient arrived in ED. mr 11:12 VERONA TRIANA is Private Physician. mr 11:29 Chandler Urbina MD is Attending Physician. ps1 11:31 Triage completed. jl7 11:31 Arm band placed on right wrist. jl7 11:33 Patient placed in waiting room, in view of staff members, Patient notified of wait time.jl7 12:03 Italia Mack RN is Primary Nurse. ss 12:03 Primary Nurse role handed off by Italia Mack RN mg2 12:03 Alber Hannah, KARLA is Primary Nurse. mg2 12:03 Alber Hannah RN is Primary Nurse. mg2 13:46 Patient has correct armband on for positive identification. mg2 13:46 No provider procedures requiring assistance completed. Patient did not have IV access mg2 during this emergency room visit. 14:31 VERONA TRIANA is Referral Physician. ps1 Administered Medications: No medications were administered Outcome: 14:32 Discharge ordered by MD. ps1 14:47 Discharged to home ambulatory. mg2 14:47 Condition: stable 14:47 Discharge instructions given to patient, Instructed on discharge instructions, follow up and referral plans. medication usage, Demonstrated understanding of instructions, follow-up care, medications, Prescriptions given X 3. 14:47 Patient left the ED. mg2 Signatures: Marcy Montesinos mr Italia Mack, RN RN ss David Fields RN RN jl7 Chandler Urbina MD MD ps1 Alber Hannah RN RN mg2
--- NOTE | 2019-03-19 14:34 | EDPHYS ---
Physician Documentation [facility] Name: Breanna Tolbert Age: 33 yrs Sex: Female : 1985 Arrival Date: 03/19/2019 Time: 11:11 Bed 23 Private MD: VERONA TRIANA ED Physician Chandler Urbina MILL RECORDER: 03/19 11:31 LMP 03/12/2019 jl7 Historical: - Allergies: 11:31 No Known Allergies; jl7 - Home Meds: 11:31 None [Active]; jl7 - PMHx: 11:31 None; jl7 - PSHx: 11:31 None; jl7 - Immunization history:: Adult Immunizations not up to date. - Coronavirus screen:: The patient has NOT traveled to [place], [place], or [place] in the past 14 days. Proceed with normal triage process as indicated. - Social history:: Smoking status: Patient reports the use of cigarette tobacco products, smokes one-half pack cigarettes per day. - Ebola Screening: : No symptoms or risks identified at this time. Vital Signs: 11:31 BP 111 / 62; Pulse 77; Resp 17; Temp 98.5; Pulse Ox 99% ; Weight 81.65 kg; Height 5 ft. jl7 7 in. (170.18 cm); Pain 7/10; 13:30 BP 118 / 68; Pulse 67; Resp 18; Pulse Ox 100% on R/A; mg2 14:46 BP 113 / 69; Pulse 70; Resp 18; Temp 98; Pulse Ox 100% on R/A; mg2 11:31 Body Mass Index 28.19 (81.65 kg, 170.18 cm) jl7 MDM: 12:27 Patient medically screened. ps1 03/19 13:22 Order name: Humerus Right XRAY ps1 03/19 14:42 Order name: RAD EDMS Administered Medications: No medications were administered Disposition: 03/19/19 14:32 Discharged to Home. Impression: Pain in right upper arm, Fall, right knee contusion. - Condition is Stable. - Discharge Instructions: Musculoskeletal Pain. - Prescriptions for Anaprox DS 550 mg Oral Tablet - take 1 tablet by ORAL route every 12 hours As needed; 20 tablet. Robaxin 500 mg Oral Tablet - take 2 tablet by ORAL route every 6 hours As needed; 40 tablet. Medrol (Kvng) 4 mg Oral Tablets, Dose Pack - take 1 tablet by ORAL route as directed - follow package instructions; 1 packet. - Medication Reconciliation Form, Thank You Letter, Antibiotic Education, Prescription Opioid Use form. - Follow up: VERONA TRIANA; When: As needed; Reason: Recheck today's complaints, Continuance of care, Re-evaluation by your physician. Follow up: Emergency Department; When: As needed; Reason: Fever > 102 F, Trouble breathing, Worsening of condition. - Problem is new. - Symptoms have improved. Signatures: Dispatcher [employer] EDMS David Fields RN RN jl7 Chandler Urbina MD MD ps1 Alber Hannah RN RN mg2 Corrections: (The following items were deleted from the chart) 14:47 14:32 03/19/2019 14:32 Discharged to Home. Impression: Pain in right upper arm; Fall; mg2 right knee contusion. Condition is Stable. Forms are Medication Reconciliation Form, Thank You Letter, Antibiotic Education, Prescription Opioid Use. Follow up: VERONA TRIANA; When: As needed; Reason: Recheck today's complaints, Continuance of care, Re-evaluation by your physician. Follow up: Emergency Department; When: As needed; Reason: Fever > 102 F, Trouble breathing, Worsening of condition. Problem is new. Symptoms have improved. ps1
--- NOTE | 2019-03-19 14:37 | RAD REPORT ---
EXAM DESCRIPTION: RAD - Humerus Right - 03/19/2019 2:22 pm CLINICAL HISTORY: fall / pain COMPARISON: <Comparisons> FINDINGS: No fracture or dislocation seen.
[2019-03-21 06:47] VITALS: BP 113/69; TEMP 98; O2SAT 100
== END 2019-03-19 14:47 | disposition home or self-care (01) ==
LOC: ER 11:09
DX: S80.01XA Contusion of right knee, initial encounter (principal); M79.621 Pain in right upper arm; W18.30XA Fall on same level, unspecified, initial encounter; Y93.89 Activity, other specified; Y92.9 Unspecified place or not applicable; Y99.0 Civilian activity done for income or pay; F17.210 Nicotine dependence, cigarettes, uncomplicated
CPT/HCPCS: 99282

== ENCOUNTER 2019-04-14 00:36 | Emergency (ER) | payer SELFPAY ==
--- NOTE | 2019-04-14 03:03 | ER ---
Nurse's Notes [facility] Name: Breanna Tolbert Age: 33 yrs Sex: Female : 1985 Arrival Date: 04/14/2019 Time: 01: Bed 15 Private MD: Diagnosis: Acute upper respiratory infection, unspecified;Otitis media, unspecified, bilateral Presentation: 04/13 01:02 Chief complaint: Patient states: Itchy throat yesterday. Now has sore throat. + body ll1 aches. Coronavirus screen: The patient has NOT traveled to a country currently being monitored by the [facility] within the last 14 days. Proceed with normal triage procedures. Ebola Screen: Patient denies travel to an Ebola-affected area in the 21 days before illness onset. Initial Sepsis Screen: Does the patient meet any 2 criteria? No. Patient's initial sepsis screen is negative. Does the patient have a suspected source of infection? No. Patient's initial sepsis screen is negative. Risk Assessment: Do you want to hurt yourself or someone else? Patient reports no desire to harm self or others. 01:02 Method Of Arrival: Ambulatory ll1 01:02 Acuity: MISHEL 4 ll1 01:30 Onset of symptoms was April 13, 2019. wh Historical: - Allergies: 01:04 No Known Allergies; ll1 - PMHx: 01:04 None; ll1 - PSHx: 01:04 None; ll1 - Immunization history:: Flu vaccine is not up to date. - Social history:: Smoking status: Patient reports the use of cigarette tobacco products, smokes one-half pack cigarettes per day, Patient/guardian denies using alcohol, street drugs. Screenin:30 Abuse screen: Denies threats or abuse. Denies injuries from another. Nutritional wh screening: No deficits noted. Tuberculosis screening: No symptoms or risk factors identified. Fall Risk None identified. Assessment: 01:15 General: Appears in no apparent distress. Behavior is calm, cooperative, appropriate wh for age. Pain: Complains of pain in sore throat. Neuro: Level of Consciousness is awake, alert, obeys commands, Oriented to person, place, time, situation, Appropriate for age. Cardiovascular: Heart tones S1 S2. Respiratory: Airway is patent Respiratory effort is even, unlabored, Respiratory pattern is regular, symmetrical, Breath sounds are clear bilaterally. GI: Abdomen is flat, non-distended. : No signs and/or symptoms were reported regarding the genitourinary system. EENT: Throat is pink. Derm: Skin is intact, is healthy with good turgor, Skin is pink, warm \T\ dry. normal. Musculoskeletal: Circulation, motion, and sensation intact. 01:30 Reassessment: Patient appears in no apparent distress at this time. No changes from previously documented assessment. Patient and/or family updated on plan of care and expected duration. Pain level reassessed. Patient is alert, oriented x 3, equal unlabored respirations, skin warm/dry/pink. Vital Signs: 01:02 BP 127 / 63; Pulse 88; Resp 17; Temp 98.0; Pulse Ox 100% ; Weight 83.91 kg; Height 5 ll1 ft. 7 in. (170.18 cm); Pain 5/10; 01:30 Pulse 79; Resp 18; Temp 97.4; Pulse Ox 99% on R/A; wh 01:02 Body Mass Index 28.97 (83.91 kg, 170.18 cm) ll1 ED Course: 01:01 Patient arrived in ED. es 01:04 Triage completed. ll1 01:05 Arm band placed on Patient placed in an exam room. ll1 01:07 Zoraida Myers [facility]NP-C [facility]. snw 01:07 Loretta Newell MD is Attending Physician. snw 01:15 Yoko Mathis is Primary Nurse. wh 01:30 Patient has correct armband on for positive identification. Bed in low position. Call light in reach. Side rails up X 1. Pulse ox on. NIBP on. 01:35 No provider procedures requiring assistance completed. Patient did not have IV access during this emergency room visit. Administered Medications: 03:25 Drug: Decadron 8 mg Route: PO; 03:38 Follow up: Response: No adverse reaction 03:25 Drug: Augmentin 875 mg Route: PO; 03:38 Follow up: Response: No adverse reaction 03:25 Drug: Motrin 400 mg Route: PO; 03:38 Follow up: Response: No adverse reaction Outcome: :35 Discharged to home ambulatory. 01:35 Condition: stable 01:35 Discharge instructions given to patient, Instructed on discharge instructions, follow up and referral plans. medication usage, POC Demonstrated understanding of instructions, follow-up care, medications, POC Prescriptions given X 3. 03:01 Discharge ordered by . milagro 03:38 Patient left the ED. Signatures: Zoraida Myers, AIR TABLE OPERATOR-C AIR TABLE OPERATOR-Csnw Keke Harmon Winsy wh Lewis, Lynsay RN RN ll1
--- NOTE | 2019-04-14 03:04 | EDPHYS ---
Physician Documentation [facility] Name: Breanna Tolbert Age: 33 yrs Sex: Female : 1985 Arrival Date: 04/14/2019 Time: 01:01 Bed 15 Private MD: ED Physician Loretta Newell HPI: 04/13 01:22 This 33 yrs old Female presents to ER via Ambulatory with complaints of Sore snw Throat. 01:22 The patient presents with sore throat. The patient describes throat pain as raw, snw scratchy. Onset: The symptoms/episode began/occurred suddenly, 1 day(s) ago, and became persistent. Severity of symptoms: At their worst the symptoms were moderate, severe. Associated signs and symptoms: Pertinent positives: flu-like symptoms, malaise, rhinorrhea, Sore throat. It is unknown whether or not the patient has had similar symptoms in the past. The patient has not recently seen a physician. Historical: - Allergies: 01:04 No Known Allergies; ll1 - PMHx: 01:04 None; ll1 - PSHx: 01:04 None; ll1 - Immunization history:: Flu vaccine is not up to date. - Social history:: Smoking status: Patient reports the use of cigarette tobacco products, smokes one-half pack cigarettes per day, Patient/guardian denies using alcohol, street drugs. ROS: 01:21 Eyes: Negative for injury, pain, redness, and discharge. snw 01:21 Neck: Negative for injury, pain, and swelling, Cardiovascular: Negative for chest pain, palpitations, and edema, Respiratory: Negative for shortness of breath, cough, wheezing, and pleuritic chest pain, Abdomen/GI: Negative for abdominal pain, nausea, vomiting, diarrhea, and constipation, Back: Negative for injury and pain, : Negative for injury, bleeding, discharge, and swelling, MS/Extremity: Negative for injury and deformity, Skin: Negative for injury, rash, and discoloration, Neuro: Negative for headache, weakness, numbness, tingling, and seizure, Psych: Negative for depression, anxiety, suicide ideation, homicidal ideation, and hallucinations. 01:21 Constitutional: Positive for body aches, malaise. 01:21 ENT: Positive for nasal discharge, sore throat. Exam: 01:20 Constitutional: This is a well developed, well nourished patient who is awake, alert, snw and in no acute distress. Head/Face: Normocephalic, atraumatic. Eyes: Pupils equal round and reactive to light, extra-ocular motions intact. Lids and lashes normal. Conjunctiva and sclera are non-icteric and not injected. Cornea within normal limits. Periorbital areas with no swelling, redness, or edema. Neck: Trachea midline, no thyromegaly or masses palpated, and no cervical lymphadenopathy. Supple, full range of motion without nuchal rigidity, or vertebral point tenderness. No Meningismus. Chest/axilla: Normal chest wall appearance and motion. Nontender with no deformity. No lesions are appreciated. Cardiovascular: Regular rate and rhythm with a normal S1 and S2. No gallops, murmurs, or rubs. Normal PMI, no JVD. No pulse deficits. Respiratory: Lungs have equal breath sounds bilaterally, clear to auscultation and percussion. No rales, rhonchi or wheezes noted. No increased work of breathing, no retractions or nasal flaring. Abdomen/GI: Soft, non-tender, with normal bowel sounds. No distension or tympany. No guarding or rebound. No evidence of tenderness throughout. Back: No spinal tenderness. No costovertebral tenderness. Full range of motion. Skin: Warm, dry with normal turgor. Normal color with no rashes, no lesions, and no evidence of cellulitis. MS/ Extremity: Pulses equal, no cyanosis. Neurovascular intact. Full, normal range of motion. Neuro: Awake and alert, GCS 15, oriented to person, place, time, and situation. Cranial nerves II-XII grossly intact. Motor strength 5/5 in all extremities. Sensory grossly intact. Cerebellar exam normal. Normal gait. Psych: Awake, alert, with orientation to person, place and time. Behavior, mood, and affect are within normal limits. 01:20 ENT: Ear canal(s): are normal, TM's: dullness, bilaterally, Nose: Nasal mucosa: edematous, Mouth: is normal, Posterior pharynx: swelling, that is mild, erythema, that is moderate, Voice: is normal. Vital Signs: 01:02 BP 127 / 63; Pulse 88; Resp 17; Temp 98.0; Pulse Ox 100% ; Weight 83.91 kg; Height 5 ll1 ft. 7 in. (170.18 cm); Pain 5/10; 01:30 Pulse 79; Resp 18; Temp 97.4; Pulse Ox 99% on R/A; wh 01:02 Body Mass Index 28.97 (83.91 kg, 170.18 cm) ll1 MDM: 01:20 Patient medically screened. snw 03:04 Data reviewed: vital signs, nurses notes. Data interpreted: Pulse oximetry: on room air snw is 100 %. Interpretation: normal. Counseling: I had a detailed discussion with the patient and/or guardian regarding: the historical points, exam findings, and any diagnostic results supporting the discharge/admit diagnosis, lab results, the need for outpatient follow up, for definitive care, to return to the emergency department if symptoms worsen or persist or if there are any questions or concerns that arise at home. Special discussion: Based on the history and exam findings, there is no indication for further emergent testing or inpatient evaluation. I discussed with the patient/guardian the need to see the primary care provider for further evaluation of the symptoms. 04/13 01:08 Order name: Flu; Complete Time: 01:56 snw 03 01:08 Order name: Strep; Complete Time: 01:56 snw Administered Medications: 03:25 Drug: Decadron 8 mg Route: PO; 03:38 Follow up: Response: No adverse reaction 03:25 Drug: Augmentin 875 mg Route: PO; 03:38 Follow up: Response: No adverse reaction 03:25 Drug: Motrin 400 mg Route: PO; 03:38 Follow up: Response: No adverse reaction Disposition: 04/14 01:32 Co-signature as Attending Physician, Loretta Newell MD. ma2 Disposition: 04/14/19 03:01 Discharged to Home. Impression: Acute upper respiratory infection, unspecified, Otitis media, unspecified, bilateral. - Condition is Stable. - Discharge Instructions: Otitis Media, Adult, Upper Respiratory Infection, Adult. - Prescriptions for Augmentin 875- 125 mg Oral Tablet - take 1 tablet by ORAL route every 12 hours for 10 days; 20 tablet. Tessalon Perles 100 mg Oral Capsule - take 1 capsule by ORAL route every 8 hours As needed; 15 capsule. Diflucan 150 mg Oral Tablet - take 1 tablet by ORAL route one time for 1 day; 1 tablet. - Work release form, Medication Reconciliation Form, Thank You Letter, Antibiotic Education, Prescription Opioid Use form. - Follow up: Emergency Department; When: As needed; Reason: Worsening of condition. Follow up: Private Physician; When: 2 - 3 days; Reason: Recheck today's complaints, Continuance of care, Re-evaluation by your physician. Signatures: Dispatcher [employer] EDKS Zoraida Myers FNP-C PRINT DESIGNER-Yoko Calderón Mohammad, MD MD ma2 Rick Davis RN RN ll1 Corrections: (The following items were deleted from the chart) 04/13 03:38 03:01 04/14/2019 03:01 Discharged to Home. Impression: Acute upper respiratory wh infection, unspecified; Otitis media, unspecified, bilateral. Condition is Stable. Forms are Medication Reconciliation Form, Thank You Letter, Antibiotic Education, Prescription Opioid Use. Follow up: Emergency Department; When: As needed; Reason: Worsening of condition. Follow up: Private Physician; When: 2 - 3 days; Reason: Recheck today's complaints, Continuance of care, Re-evaluation by your physician. snw
[2019-04-14] MEDS ORDERED: dexAMETHasone 4 MG TAB ONE (03:15)
[2019-04-14] MEDS ORDERED: IBUPROFEN 400 MG TAB ONE (03:16)
[2019-04-14] MEDS ORDERED: AMOX/K CLAV 875 MG TAB ONE (03:16)
[2019-04-14 03:44] VITALS: BP 127/63
[2019-04-14 03:46] VITALS: TEMP 97.4; O2SAT 99
== END 2019-04-14 03:38 | disposition home or self-care (01) ==
LOC: ER 00:36
DX: J06.9 Acute upper respiratory infection, unspecified (principal); H66.93 Otitis media, unspecified, bilateral; F17.210 Nicotine dependence, cigarettes, uncomplicated
CPT/HCPCS: 87070; 87081; 87804; 99283; J8540